=== PATIENT | female | born 2000 | race Caucasian/White ===

== ENCOUNTER 2022-10-13 21:58 | Emergency (ER) | payer OTHER, SELFPAY ==
--- NOTE | ~2022-10-13 | XR_ITS ---
EXAMINATION: XR KNEE, RIGHT CLINICAL INFORMATION: Fall with right knee pain COMPARISON: None TECHNIQUE: Four views of the right knee. FINDINGS: Bones and soft tissues are normal. No fracture or joint effusion. Alignment is anatomic. Joint spaces are well maintained. No abnormal soft tissue calcification. XR/XR knee RT 4V IMPRESSION: Normal right knee.
[2022-10-13 22:01] VITALS: BP 120/67; PULSE 77; RESP 20; TEMP 36.6; O2SAT 100; BMI 24.3
[2022-10-13 23:50] VITALS: BP 113/62; PULSE 72; RESP 16; TEMP 36.2; O2SAT 97
[2022-10-14] MEDS: Ibuprofen 800 MG TABLET PO (00:51)
[2022-10-14] MEDS: predniSONE 20 MG TABLET 60 MG PO (00:51)
--- NOTE | 2022-10-14 00:59 | PC.NURSE ---
Pt a&o, no sob or chest pain, provider into assess pt, no fx, crutches and alberta wrap applied. pt tolerated well. CMS and pulses intact. Plan is for pt to be discharge home.
[2022-10-14 01:06] VITALS: BP 110/60; PULSE 64; RESP 16; TEMP 36.3; O2SAT 98
--- NOTE | 2022-10-14 01:06 | ED_ITS ---
HPI - General Adult General Chief complaint: Extremity Injury, Lower Stated complaint: R knee injury Time Seen by Provider: 10/14/22 00:05 Source: patient Mode of arrival: ambulatory Limitations: no limitations History of Present Illness HPI narrative: 22 yold female presents to the ED for right knee pain due while playing basketball. patient states she was going for a lay up and after she took her with her right foot she heard a pop in her right and had pain immeidatley. patient not able to bear weight. patient denies falling to the ground or hitting head. Related Data Previous Rx's Medication Instructions Recorded naproxen 500 mg tablet 500 mg PO BID PRN pain 7 days #14 10/14/22 tabs prednisone 20 mg tablet 40 mg PO DAILY 5 days #10 tabs 10/14/22 Allergies Allergy/AdvReac Type Severity Reaction Status Date / Time No Known Allergies Allergy Verified 10/13/22 22:03 Review of Systems Review of Systems: right knee pain Yes all other systems are reviewed and are negative [facility] Social History Social History Smoked in Last 30 Days: No Use of substances other than those prescribed or required for medical reasons: No Advance Directives: No Advance Directives Information Provided: Yes Physical Exam ED Vital Signs: Vital Signs - 24 hr 10/13/22 22:01 10/13/22 23:50 10/14/22 01:06 Temperature 97.8 F 97.2 F 97.4 F Pulse Rate 77 72 64 Respiratory Rate 20 16 16 Blood Pressure 120/67 113/62 110/60 Pulse Oximetry 100 97 98 Oxygen Delivery Method Room Air Room Air Room Air BMI result Body Mass Index 24.3 Const General: cooperative, healthy appearing, comfortable, no acute distress, well developed, alert and awake Orientation/consciousness: oriented to person, oriented to place, oriented to time and patient oriented x3 HENMT Head: Yes normal to inspection, Yes No palpable skull fracture present, Yes normocephalic, Yes atraumatic and No abrasion Eyes General: appearance normal, both eyes and all related structures Neck Neck: Yes normal visual inspection, Yes full ROM, Yes no lymphadenopathy, Yes no meningeal signs, Yes trachea midline, Yes supple, No anterior neck swelling and No tender Chest Chest palpation & inspection: normal inspection of the chest and normal palpation of entire chest wall Resp Effort & Inspection: normal respiratory effort and able to speak in complete sentences Auscultation: clear to auscultation bilaterally Cardio Jugular venous distension: no JVD Heart sounds: S1 normal heart sound present and S2 normal heart sound present GI Inspection: Yes normal to inspection and No abdominal wall ecchymosis Palpation (GI): Soft to palpation, not firm, nontender, no guarding and not r igid General: No CVA tenderness and Yes no CVA tenderness Back/Spine/Pelvis Back: no CVA tenderness, No CVA tenderness and No back tenderness Skin General skin exam: no rashes or lesions noted and elasticity normal Neuro General: oriented to person, oriented to place, oriented to time, patient orient ed x3, tone normal, moves all extremities, Normal light touch and pain sensation, no meningeal signs, no focal motor deficits, CN's II-XI intact bilaterally and normal sensation to monofilament Extrem General: Yes normal to inspection and Yes full ROM Knee images: 1. Positive for tenderness on palpation. Negative for elasticity, crepitus, ecchymosis, or deformity. Able to flex and extend knee but with pain. Motor exam limited due to pain. Neurovascular exam of extremity intact. NO erythema Psych Appearance: grossly normal, well kempt and not disheveled Course Course Course Narrative: X-ray of the knee ordered. Reevaluation(s) Reevaluation #1: X-ray normal. Patient informed she may have a ligament or meniscus injury will need further MRI by a primary care provider. Man wrap placed discharged with crutches. Patient with pain medication steroids Time: 01:11 Medications Administered Discontinued Medications Generic Name Dose Route Start Last Admin Trade Name Freq PRN Reason Stop Dose Admin Ibuprofen 800 mg 10/14/22 00:31 10/14/22 00:51 Ibuprofen 800 Mg Tablet PO 10/14/22 00:32 800 mg ONCE ONE Administration Prednisone 60 mg 10/14/22 00:31 10/14/22 00:51 Prednisone 20 Mg Tablet PO 10/14/22 00:32 60 mg ONCE ONE Administration Medical Decision Making Medical Decision Making MDM Narrative: 22 year female presents to ED for right knee pain after hearing a pop in her right knee while going falling playing basketball. Patient denies falling to the ground hitting head. X-ray normal. Differential Diagnosis Differential Diagnoses: The differential diagnosis associated with the presentation includes (Right knee sprain. Right knee fracture. Right knee patellar dislocation.) Radiology Impression Discussion of test interpretation with radiology: I have reviewed the radiologist's reading. Prescription Management I considered prescription management with: Pain Medication Discharge Plan Discharge Clinical Impression: Right knee sprain Patient Disposition: Home, Self-Care Instructions: Knee Sprain (ED) Additional Instructions: The x-ray came back normal but you need to follow-up with her primary care provider for schedule MRI to rule out any meniscus/ligament tear of knee. Return to the ED for any swelling, redness, blue discoloration, fever, chills, worsening pain, or any other concerning symptoms. Prescriptions: New naproxen 500 mg tablet 500 mg PO BID PRN (Reason: pain) 7 Days Qty: 14 0RF prednisone 20 mg tablet 40 mg PO DAILY 5 Days Qty: 10 0RF Stand Alone Forms: Work/School Release Interventions: ED Discharge Assessment Last Done: 10/14/22 01:35 Discharge Date/Time: 10/14/22 01:36 Print Language: Scottish
--- NOTE | 2022-10-14 01:36 | PC.NURSE ---
Reviewed discharge instructions with pt, pt verbalized understanding, No sign of distress at this time.
== END 2022-10-14 01:36 | disposition home or self-care (01) ==
PROVIDERS: Emergency Provider Emergency Medicine Emergency Medical Services
DX: S83.91XA Sprain of unspecified site of right knee, initial encounter (principal); X50.1XXA Overexertion from prolonged static or awkward postures, initial encounter; Y93.67 Activity, basketball; Y92.310 Basketball court as the place of occurrence of the external cause; Y99.9 Unspecified external cause status
CPT/HCPCS: 73564; 99283; 99284